=== PATIENT | female | born 1945 | race Caucasian/White ===

== ENCOUNTER 2019-07-17 07:57 | Outpatient (CLI) | payer MEDICARE, OTHER, SELFPAY ==
--- NOTE | 2019-07-17 08:04 | MM_ITS ---
WS: [id number] BILATERAL SCREENING DIGITAL MAMMOGRAM WITH CAD HISTORY: SCREENING COMPARISON: 06/06/2018 and 06/04/2017 Bilateral CC and MLO views submitted. Computer aided detection analyzed. Breast composition: The breasts are heterogeneously dense, which may obscure small masses. No suspici ous masses, microcalcifications or architectural distortion. Benign calcifications in each breast. MM/[id number] IMPRESSION: BI-RADS: 2-Benign FOLLOW UP: 1 Year Follow-up
== END 2019-07-17 07:58 | disposition home or self-care (01) ==
LOC: RADSHAW 08:03
PROVIDERS: Family Provider Family Medicine; PCP Family Medicine; Visit Provider Family Medicine
DX: Z12.31 Encounter for screening mammogram for malignant neoplasm of breast (principal)
CPT/HCPCS: 77067

== ENCOUNTER → 2020-06-05 14:00 | Outpatient (BNVA) | payer MEDICARE, OTHER, SELFPAY | PROVIDERS: Family Provider Family Medicine; PCP Family Medicine; Visit Provider Podiatrist Foot & Ankle Surgery | DX: M77.32 Calcaneal spur, left foot (principal); M19.072 Primary osteoarthritis, left ankle and foot | CPT/HCPCS: 73630 ==

== ENCOUNTER 2020-07-29 11:12 | Outpatient (CLI) | payer MEDICARE, SELFPAY ==
--- NOTE | 2020-07-29 11:28 | MM_ITS ---
WS: [id number] Exam: [place] [id number] Date/Time of Exam: 07/29/2020 11:42 AM Reason For Exam: SCREENING VIEWS: MLO and CC views both breasts. Comparison made with prior exam of 07/17/2019, 06/06/2018, and 06/04/2017.. Findings: There was no sign of mass, architectural distortion or suspicious calcification in either breast. He terogeneously dense MM/[place] [id number] Impression: BI-RADS: 2-Benign FOLLOW-UP: 1 Year Follow-up This mammogram was also analyzed by the Computer Aided Detection System R2 Imag e Casting Technician.
== END 2020-07-29 11:13 | disposition home or self-care (01) ==
LOC: RADSHAW 11:14
PROVIDERS: PCP Family Medicine; Visit Provider Family Medicine
DX: Z12.31 Encounter for screening mammogram for malignant neoplasm of breast (principal)
CPT/HCPCS: 77067

== ENCOUNTER 2021-10-16 13:04 | Outpatient (CLI) | payer MEDICARE, SELFPAY ==
--- NOTE | 2021-10-16 13:23 | MM_ITS ---
WS: [id number] BILATERAL 3D TOMOSYNTHESIS DIGITAL SCREENING MAMMOGRAPHY WITH CAD CLINICAL INFORMATION: SCREENING HISTORY: Screening mammogram. No current complaints. COMPARISON: July 29, 2020 TECHNIQUE: Bilateral CC and MLO views. FINDINGS: The breasts are composed of heterogeneous fibroglandular density tissue, which can limit the detectio n of small underlying mass lesions. Stable punctate and lucent center calcifications. No suspicious m ass, asymmetry, calcifications, or architectural distortion. No evidence of malignancy. MM/[place] [id number] IMPRESSION: BI-RADS: 2-Benign FOLLOW UP: 1 Year Follow-up Recommend return to annual screening mammography.
== END 2021-10-16 13:05 | disposition home or self-care (01) ==
LOC: RADSHAW 13:06
PROVIDERS: PCP Family Medicine; Visit Provider Family Medicine
DX: Z12.31 Encounter for screening mammogram for malignant neoplasm of breast (principal)
CPT/HCPCS: 77063; 77067

== ENCOUNTER → 2022-02-04 10:01 | Outpatient (BNVA) | payer MEDICARE, SELFPAY | PROVIDERS: PCP Family Medicine; Visit Provider Family Medicine | DX: I10 Essential (primary) hypertension (principal); R73.9 Hyperglycemia, unspecified; R79.89 Other specified abnormal findings of blood chemistry | CPT/HCPCS: 80053; 83036; 84443; 85025 ==

== ENCOUNTER 2023-02-26 08:49 | Outpatient (CLI) | payer MEDICARE, SELFPAY ==
--- NOTE | 2023-02-26 08:58 | MM_ITS ---
WS: [id number] BILATERAL SCREENING DIGITAL TOMOSYNTHESIS MAMMOGRAM WITH CAD HISTORY: SCREENING COMPARISON: 10/16/2021, 07/29/2020, 07/17/2019 Bilateral CC and MLO views with tomosynthesis and synthetic mammography submitted. Computer aided det ection analyzed. Breast composition: The breasts are heterogeneously dense, which may obscure small masses. No suspici ous masses, microcalcifications or architectural distortion. Benign calcifications in each breast. Mi ld retraction of the LEFT nipple is stable. Prior surgery. IMPRESSION: MM/[place] [id number] BI-RADS: 2-Benign FOLLOW UP: 1 Year Follow-up
== END 2023-02-26 08:50 | disposition home or self-care (01) ==
PROVIDERS: PCP Family Medicine; Visit Provider Family Medicine
DX: Z12.31 Encounter for screening mammogram for malignant neoplasm of breast (principal)
CPT/HCPCS: 77063; 77067

== ENCOUNTER → 2023-03-08 14:11 | Outpatient (BNVA) | payer MEDICARE, SELFPAY | PROVIDERS: PCP Family Medicine; Visit Provider Surgery | DX: Z12.11 Encounter for screening for malignant neoplasm of colon (principal); C82.90 Follicular lymphoma, unspecified, unspecified site | CPT/HCPCS: 99204 ==

== ENCOUNTER → 2023-03-17 14:06 | Outpatient (BNVA) | payer MEDICARE, SELFPAY | PROVIDERS: PCP Family Medicine; Visit Provider Dermatology | DX: L82.0 Inflamed seborrheic keratosis (principal); L72.8 Other follicular cysts of the skin and subcutaneous tissue; L82.1 Other seborrheic keratosis; L81.4 Other melanin hyperpigmentation; D22.61 Melanocytic nevi of right upper limb, including shoulder; D22.0 Melanocytic nevi of lip; Z85.828 Personal history of other malignant neoplasm of skin | CPT/HCPCS: 17110; 99213 ==

== ENCOUNTER 2023-04-20 05:55 | Day surgery (SDC) | payer MEDICARE, SELFPAY ==
[2023-04-20 06:06] VITALS: BMI 29.8
[2023-04-20 06:11] VITALS: BP 151/91; PULSE 84; RESP 18; TEMP 36.1; O2SAT 98
[2023-04-20] MEDS: sodium chloride 0.9% 1,000 ML 30 ML IV (06:21)
--- NOTE | 2023-04-20 06:30 | ANES.PREANE2 ---
Pre-Anesthetic Assessment Height/Weight: Height 1.63 m Weight 78.925 kg Temp Pulse Resp BP Pulse Ox O2 Del Method 97 F L 84 18 151/91 98 Room Air 04/20/23 06:11 04/20/23 06:11 04/20/23 06:11 04/20/23 06:11 04/20/23 06:11 04/20/23 06:11 Preop Diagnosis: Screening Operation Date: 04/20/23 07:00 Proposed Procedures p [id number] egd [id number] colon G0121 screen colon A risk Z12.11,K44.9(Not Applicable) - Mark Gerard MD s Colonoscopy(Not Applicable) - Mark Gerard MD Familial anesthetic complications: N/V Was Beta Janel taken within 24 hours: N/A Was Clonidine taken within 24 hours: N/A Last intake: Intake Last Liquid Date 04/19/23 Last Liquid Time 23:55 Last Solid Date 04/19/23 Last Solid Time 19:00 Social No alcohol and No tobacco Exam alert, oriented x 3, clear to auscultation bilaterally and regular rate & rhythm Airway Submandibular: within normal limits Cervical ROM: within normal limits Mallampati: Class II Dentition: full Comments: Comments: Some missing History/ROS No significant history except as noted and No significant complaints Pulmonary Exertional Dyspnea CV/HEM Hypertension Endometrial cancer: chemo and radiation Hepatic Elevated LFTs GI Gastroesophageal Reflux Disease and Hiatal Hernia Metabolic None reported Musc/skel Rheumatoid Arthritis Neuropsych Anxiety and Neuropathy Anesthetic Plan ASA status: 3 Anesthesia: Anesthesia Evaluation, General and MAC Risk of > 500 ml blood loss (7ml/kg in children): No Medications/Allergies Home Medications Medication Instructions Recorded Confirmed Last Taken Type ascorbate calcium (vitamin C) 814 814 mg PO DAILY 03/26/20 04/16/23 04/18/23 History mg/gram oral powder cholecalciferol (vitamin D3) 1,250 1 mcg PO DAILY 03/26/20 04/16/23 04/18/23 History mcg (50,000 unit) capsule ketoconazole 2 % shampoo 1 applic topical .2 x weekly #120 03/26/20 04/16/23 Unknown Rx mL amlodipine 10 mg tablet 10 mg PO DAILY 04/16/23 04/16/23 04/20/23 History losartan 50 mg-hydrochlorothiazide 2 tab PO DAILY 04/16/23 04/16/23 04/19/23 History 12.5 mg tablet omeprazole 40 mg capsule,delayed 40 mg PO DAILY 04/16/23 04/16/23 04/19/23 History release Allergies Allergy/AdvReac Type Severity Reaction Status Date / Time penicillin G Allergy itchy, rash Verified 04/16/23 08:51 Sulfa (Sulfonamide Allergy itchy, rash Verified 04/16/23 08:51 Antibiotics) atenolol AdvReac Intermediate cough Verified 04/16/23 08:51 ibandronate sodium AdvReac Intermediate stomach Verified 04/16/23 08:51 [From Sol] pain Current Medications Generic Name Dose Route Start Last Admin Trade Name Freq PRN Reason Stop Dose Admin Sodium Chloride 1,000 mls @ 30 mls/hr 04/20/23 06:00 04/20/23 06:21 Sodium Chloride 0.9% IV 30 mls/hr .Q24H JEANNETTE Administration PFSH Anesthesia Medical History Elevated blood sugar Elevated LFTs Endometrial ca Follicular lymphoma History of nonmelanoma skin cancer Hypertension Surgical History (Updated 03/08/23 @ 14:19 by Nicki Gamez LPN) H/O: hysterectomy Family History (Updated 03/08/23 @ 14:20 by Nicki Gamez LPN) Mother No problems noted. Father , at age 93 No problems noted. Social History Smoking and tobacco/nicotine status: never used tobacco/nicotine Alcohol intake: never Data Anesthesia Cardiac Studies: No Data to Display
--- NOTE | 2023-04-20 06:42 | W.PM.OPSFHP ---
Same Day Surgery H&P Indication for Procedure/HPI DATE OF PROCEDURE: April 20, 2023 CHIEF COMPLAINT/INDICATIONFOR SURGICAL PROCEDURE: need for screening colonoscopy PREOP DIAGNOSIS: Screening PLANNED PROCEDURE: Operation Date: 04/20/23 07:00 Proposed Procedures p 82486 egd [id number] colon G0121 screen colon A risk Z12.11,K44.9(Not Applicable) - Mark Gerard MD s Colonoscopy(Not Applicable) - Mark Gerard MD Medications/Allergies* Home Medications Medication Instructions Recorded Confirmed Type ascorbate calcium (vitamin C) 814 814 mg PO DAILY 03/26/20 04/16/23 History mg/gram oral powder cholecalciferol (vitamin D3) 1,250 1 mcg PO DAILY 03/26/20 04/16/23 History mcg (50,000 unit) capsule amlodipine 10 mg tablet 10 mg PO DAILY 04/16/23 04/16/23 History losartan 50 mg-hydrochlorothiazide 2 tab PO DAILY 04/16/23 04/16/23 History 12.5 mg tablet omeprazole 40 mg capsule,delayed 40 mg PO DAILY 04/16/23 04/16/23 History release Allergies/Adverse Reactions Allergy/AdvReac Type Severity Reaction Status Date / Time penicillin G Allergy itchy, rash Verified 04/16/23 08:51 Sulfa (Sulfonamide Allergy itchy, rash Verified 04/16/23 08:51 Antibiotics) atenolol AdvReac Intermediate cough Verified 04/16/23 08:51 ibandronate sodium AdvReac Intermediate stomach Verified 04/16/23 08:51 [From Boniva] pain Current Medications: Generic Name Dose Route Start Last Admin Trade Name Freq PRN Reason Stop Dose Admin Sodium Chloride 1,000 mls @ 30 mls/hr 04/20/23 06:00 04/20/23 06:21 Sodium Chloride 0.9% IV 30 mls/hr .Q24H JEANNETTE Administration Pertinent History/Comorbid Conditions* Medical History (Updated 02/04/22 @ 09:46 by Dayday Guadalupe MD) Elevated blood sugar Elevated LFTs Endometrial ca Follicular lymphoma History of nonmelanoma skin cancer Hypertension Surgical History (Updated 06/09/20 @ 14:52 by Raghavendra Glass DPM) H/O: hysterectomy Family History Father, at age 93 Social History Smoking and tobacco/nicotine status: never used tobacco/nicotine Alcohol intake: never Pertinent Exam Findings alert, oriented x 3 and clear to auscultation bilaterally Recommendations Surgery/Procedure today Coding Level of Care Code Acute Code for Chg Fwd Diagnoses
[2023-04-20 08:15] VITALS: BP 100/54; PULSE 59; RESP 14; TEMP 36.1; O2SAT 97
[2023-04-20 08:33] VITALS: BP 135/76; PULSE 65; RESP 16; O2SAT 99
[2023-04-20 08:48] VITALS: BP 131/72; PULSE 65; RESP 16; O2SAT 98
--- NOTE | 2023-04-20 09:15 | ANE.PACU2 ---
Inpatient post-anesthesia follow up: Airway intact: Yes Vital signs: Temperature 97 F Pulse Rate 65 Respiratory Rate 16 Blood Pressure 131/72 Pulse Oximetry 98 Oxygen Delivery Me thod Room Air Oxygen Flow Rate Fraction of Inspir ed Oxygen Hydration adequate: Yes Nausea and vomiting: No Pain level: 1 Mental status: Baseline
== END 2023-04-20 09:19 | disposition home or self-care (01) ==
PROVIDERS: PCP Family Medicine; Visit Provider Surgery
PROC: 0DJ08ZZ Inspection of Upper Intestinal Tract, Via Natural or Artificial Opening Endoscopic (ICD-10-PCS; CPT 43235; principal; 2023-04-20 07:00)
PROC: 0DJD8ZZ Inspection of Lower Intestinal Tract, Via Natural or Artificial Opening Endoscopic (ICD-10-PCS; CPT 45330; 2023-04-20 07:00)
DX: Z12.11 Encounter for screening for malignant neoplasm of colon (principal); K44.9 Diaphragmatic hernia without obstruction or gangrene; K29.50 Unspecified chronic gastritis without bleeding; K31.7 Polyp of stomach and duodenum; I10 Essential (primary) hypertension; Z85.89 Personal history of malignant neoplasm of other organs and systems; Z92.3 Personal history of irradiation; Z92.21 Personal history of antineoplastic chemotherapy; K21.9 Gastro-esophageal reflux disease without esophagitis; M06.9 Rheumatoid arthritis, unspecified
CPT/HCPCS: 43239; 43251; 45330; 88305; 88342; J2704; J7030

== ENCOUNTER → 2023-05-03 12:36 | Outpatient (BNVA) | payer MEDICARE, SELFPAY | PROVIDERS: PCP Family Medicine; Visit Provider Surgery | DX: Z09 Encounter for follow-up examination after completed treatment for conditions other than malignant neoplasm (principal) | CPT/HCPCS: 99213 ==

== ENCOUNTER → 2023-08-05 09:08 | Outpatient (BNVA) | payer MEDICARE, SELFPAY | PROVIDERS: PCP Family Medicine; Visit Provider Family Medicine | DX: I10 Essential (primary) hypertension (principal); R73.9 Hyperglycemia, unspecified; R79.89 Other specified abnormal findings of blood chemistry | CPT/HCPCS: 80053; 80061; 83036; 85025 ==

== ENCOUNTER → 2023-09-16 13:36 | Outpatient (BNVA) | payer MEDICARE, SELFPAY | PROVIDERS: PCP Family Medicine; Visit Provider Nurse Practitioner Family | DX: L72.8 Other follicular cysts of the skin and subcutaneous tissue (principal); L82.1 Other seborrheic keratosis; L81.4 Other melanin hyperpigmentation; D22.61 Melanocytic nevi of right upper limb, including shoulder; Z85.828 Personal history of other malignant neoplasm of skin; D22.0 Melanocytic nevi of lip; L57.0 Actinic keratosis; L82.0 Inflamed seborrheic keratosis | CPT/HCPCS: 17000; 17110; 99213 ==

== ENCOUNTER → 2023-10-26 12:01 | Outpatient (BNVA) | payer MEDICARE, SELFPAY | PROVIDERS: PCP Family Medicine; Visit Provider Family Medicine | DX: R42 Dizziness and giddiness (principal); N39.0 Urinary tract infection, site not specified | CPT/HCPCS: 81000; 87086 ==

== ENCOUNTER → 2024-03-20 12:57 | Outpatient (BNVA) | payer MEDICARE, SELFPAY | PROVIDERS: PCP Family Medicine; Visit Provider Nurse Practitioner Family | DX: L57.0 Actinic keratosis (principal); L57.8 Other skin changes due to chronic exposure to nonionizing radiation; L81.4 Other melanin hyperpigmentation; D18.01 Hemangioma of skin and subcutaneous tissue; Z85.828 Personal history of other malignant neoplasm of skin | CPT/HCPCS: 17000; 99213 ==

== ENCOUNTER 2024-04-05 12:57 | Outpatient (CLI) | payer MEDICARE, SELFPAY ==
--- NOTE | 2024-04-05 13:01 | MM_ITS ---
WS: [id number] BILATERAL SCREENING DIGITAL TOMOSYNTHESIS MAMMOGRAM WITH CAD HISTORY: SCREENING COMPARISON: 02/26/2023, 10/16/2021 Bilateral CC and MLO views with tomosynthesis and synthetic mammography submitted. Computer aided det ection analyzed. Breast composition: The breasts are heterogeneously dense, which may obscure small masses. No suspici ous masses, microcalcifications or architectural distortion. Focal asymmetry in the medial LEFT breas t. Benign calcifications in each breast. MM/MM scr tomosynthesis [id number] IMPRESSION: BI-RADS: 2 - Benign FOLLOW UP: 1 Year Follow-up
== END 2024-04-05 12:58 | disposition home or self-care (01) ==
LOC: RAD 12:58
PROVIDERS: PCP Family Medicine; Visit Provider Family Medicine
DX: Z12.31 Encounter for screening mammogram for malignant neoplasm of breast (principal); R92.333 Mammographic heterogeneous density, bilateral breasts; N64.89 Other specified disorders of breast; R92.1 Mammographic calcification found on diagnostic imaging of breast
CPT/HCPCS: 77063; 77067

== ENCOUNTER → 2024-09-19 08:09 | Outpatient (BNVA) | payer MEDICARE, SELFPAY | PROVIDERS: PCP Family Medicine; Visit Provider Nurse Practitioner Family | DX: L85.8 Other specified epidermal thickening (principal); L21.8 Other seborrheic dermatitis; L57.8 Other skin changes due to chronic exposure to nonionizing radiation; L81.4 Other melanin hyperpigmentation; D18.01 Hemangioma of skin and subcutaneous tissue; Z08 Encounter for follow-up examination after completed treatment for malignant neoplasm; Z85.828 Personal history of other malignant neoplasm of skin; L82.0 Inflamed seborrheic keratosis; Z78.9 Other specified health status; R58 Hemorrhage, not elsewhere classified; L29.89 Other pruritus; D48.5 Neoplasm of uncertain behavior of skin | CPT/HCPCS: 11102; 17110; 99214 ==

== ENCOUNTER → 2024-10-10 08:48 | Outpatient (BNVA) | payer MEDICARE, SELFPAY | PROVIDERS: PCP Family Medicine; Visit Provider Dermatology | DX: C44.311 Basal cell carcinoma of skin of nose (principal) | CPT/HCPCS: 17311 ==

== ENCOUNTER → 2024-10-19 12:46 | Outpatient (BNVA) | payer MEDICARE, SELFPAY | PROVIDERS: PCP Family Medicine; Visit Provider Dermatology | DX: C44.311 Basal cell carcinoma of skin of nose (principal) | CPT/HCPCS: 99213 ==

== ENCOUNTER → 2024-11-01 12:51 | Outpatient (BNVA) | payer MEDICARE, SELFPAY | PROVIDERS: PCP Family Medicine; Visit Provider Dermatology | DX: B35.1 Tinea unguium (principal); L84 Corns and callosities; D22.39 Melanocytic nevi of other parts of face; Z08 Encounter for follow-up examination after completed treatment for malignant neoplasm; Z85.828 Personal history of other malignant neoplasm of skin | CPT/HCPCS: 99213 ==

== ENCOUNTER → 2024-11-15 10:46 | Outpatient (BNVA) | payer MEDICARE, SELFPAY | PROVIDERS: PCP Family Medicine; Visit Provider Obstetrics & Gynecology | DX: Z01.419 Encounter for gynecological examination (general) (routine) without abnormal findings (principal) | CPT/HCPCS: 87624 ==

== ENCOUNTER → 2024-11-29 10:33 | Outpatient (BNVA) | payer MEDICARE, SELFPAY | PROVIDERS: PCP Family Medicine; Visit Provider Dermatology | DX: C44.311 Basal cell carcinoma of skin of nose (principal); L82.1 Other seborrheic keratosis; L85.3 Xerosis cutis; D18.01 Hemangioma of skin and subcutaneous tissue | CPT/HCPCS: 99213 ==

== ENCOUNTER → 2025-01-23 09:00 | Outpatient (BNVA) | payer MEDICARE, SELFPAY | PROVIDERS: PCP Family Medicine; Visit Provider Family Medicine | DX: Z00.00 Encounter for general adult medical examination without abnormal findings (principal); I10 Essential (primary) hypertension; R73.9 Hyperglycemia, unspecified | CPT/HCPCS: 80053; 80061; 83036; 85025 ==

== ENCOUNTER 2025-04-06 08:02 | Outpatient (CLI) | payer MEDICARE, SELFPAY ==
--- NOTE | 2025-04-06 08:08 | MM_ITS ---
WS: [id number] BILATERAL SCREENING DIGITAL TOMOSYNTHESIS MAMMOGRAM WITH CAD HISTORY: SCREENING COMPARISON: 04/05/2024, 02/26/2023, 10/16/2021 Bilateral CC and MLO views with tomosynthesis and synthetic mammography submitted. Computer aided detection analyzed. Breast composition: The breasts are heterogeneously dense, which may obscure small masses. No suspicious masses, microcalcifications or architectural distortion. Benign calcifications in each breast. MM/MM [facility] tomosynthesis [id number] IMPRESSION: BI-RADS: 2 - Benign FOLLOW UP: 1 Year Follow-up
== END 2025-04-06 08:03 | disposition home or self-care (01) ==
LOC: RAD 08:03
PROVIDERS: PCP Family Medicine; Visit Provider Family Medicine
DX: Z12.31 Encounter for screening mammogram for malignant neoplasm of breast (principal); R92.333 Mammographic heterogeneous density, bilateral breasts; R92.1 Mammographic calcification found on diagnostic imaging of breast
CPT/HCPCS: 77063; 77067

== ENCOUNTER → 2025-05-08 14:21 | Outpatient (BNVA) | payer MEDICARE, SELFPAY | PROVIDERS: PCP Family Medicine; Visit Provider Nurse Practitioner Family | DX: L82.1 Other seborrheic keratosis (principal); D18.01 Hemangioma of skin and subcutaneous tissue; L81.4 Other melanin hyperpigmentation; Z20.89 Contact with and (suspected) exposure to other communicable diseases; Z08 Encounter for follow-up examination after completed treatment for malignant neoplasm; Z85.828 Personal history of other malignant neoplasm of skin; D48.5 Neoplasm of uncertain behavior of skin; L57.0 Actinic keratosis | CPT/HCPCS: 11102; 17000; 99213 ==